=== PATIENT | female | born 1980 | race Caucasian/White ===

== ENCOUNTER 2016-09-22 21:08 | Emergency (ER) | payer BC, SELFPAY ==
[~2016-09-22 21:08] MED LIST: ALDACTONE100 M1 PO; AMOXICILLIN500 MG; AMOXIL500 MG PO; ARMOUR THYROID PO; COMPAZINE10 M PO; CYCLOBENZAPRINE10 M1 PO; FLAGYL500 MG PO; GLIPIZIDE; GLIPIZIDE5 M2 PO; GLUCOPHAGE500 M1 PO; HYDROCODON-ACE1 EA16 PO; IBUPROFEN800 MG PO; METFORMIN; MOTRIN600 MG PO; MUCINEX600 MG PO; NAPROSYN250 M1 PO; NORCO 5-325 TA1 EACH PO; NORCO 5/325 TAB1 TAB; NORCO 5/325 TAB1 TAB PO; NORCO 7.5/325 T1 TAB PO; PERCOCET 5/3251 TAB PO; PERCOCET 7.5/321 TA1 PO; VIBRAMYCIN100 MG PO; VITAMIN D250000 UNI1 PO; XIGDUO XR 5 MG1 EAC1 PO; ZITHROMAX250MG Z-PAK PO
[2016-09-22] MEDS ORDERED: ADIPEX-P37.5 M2 PO (21:30)
[2016-09-22 22:12] LABS: URINE BILIRUBIN NEGATIVE (NEG); URINE BLOOD SMALL (NEG); URINE GLUCOSE (UA) MODERATE (NEG); URINE KETONE NEGATIVE (NEG); URINE LEUKOCYTE ESTERASE POSITIVE (NEG); URINE NITRITE NEGATIVE (NEG); URINE PROTEIN NEGATIVE (NEG); URINE SPECIFIC GRAVITY 1.025 (1.003-1.030)
[2016-09-22 22:13] LABS: URINE APPEARANCE CLOUDY; URINE COLOR YELLOW
[2016-09-22 22:14] LABS: BASO % 0.2 % (0-2); EOS % 1.6 % (0-7); EOSINOPHIL ABSOLUTE COUNT 0.2 tho/cmm (0.0-0.7); HCT-HEMATOCRIT 39.6 % (34.0-49.0); HGB-HEMOGLOBIN 12.7 gm/dl (12.0-15.5); IMMATURE GRANULOCYTES ABSOLUTE 0.02 tho/cmm (0-0.03); IMMATURE GRANULOCYTES PERCENT 0.2 % (0-0.3); LYMPH % 31.9 % (20-45); LYMPH ABSOLUTE COUNT 3.7 tho/cmm (0.8-4.5); MCH (MEAN CORPUSCULAR HGB) 26.6 pg (28.0-32.0); MCHC MEAN CORPUSCULAR HGB CONC 32.1 % (32.0-36.0); MCV (MEAN CELL VOLUME) 82.8 fl (82.0-96.0); MONO % 6.4 % (0-12); MONOCYTE ABSOLUTE COUNT 0.7 tho/cmm (0.0-1.2); NEUTROPHIL ABSOLUTE COUNT 6.9 tho/cmm (1.6-8.0); NEUTROPHIL-AUTOMATED 6.9 tho/cmm (1.6-8.0); NEUTROPHILS % 59.7 % (40-80); PLATELET COUNT 415 tho/cmm (150-450); RED BLOOD COUNT 4.78 mil/cmm (4.00-5.20); RED CELL DISTRIBUTION WIDTH 15.9 % (12.4-16.4); WHITE BLOOD COUNT 11.5 tho/cmm (4.0-10.0)
[2016-09-22 22:27] LABS: ALB/GLOB RATIO 0.6 (0.8-2.0); ALKALINE PHOSPHATASE 60 U/L (33-138); ALT/SGPT 20 U/L (12-78); ANION GAP 12 mmol/L (0-20); AST/SGOT 13 U/L (10-40); BILIRUBIN,TOTAL 0.3 mg/dl (0-1.5); BLOOD UREA NITROGEN 8 mg/dl (6-24); CALCIUM 8.8 mg/dl (8.5-10.5); CARBON DIOXIDE-VENOUS 25 mmol/L (22-32); CHLORIDE 104 mmol/l (96-110); CREATININE 0.54 mg/dl (0.50-1.10); GLUCOSE 143 mg/dL (70-110); LIPASE 139 U/L (73-393); POTASSIUM 3.8 mmol/L (3.7-5.1); SODIUM 137 mmol/L (135-145); eGFR VALUE FOR BLACK >90 mL/Min
[2016-09-22 22:29] LABS: URINE AMORPHOUS 1+; URINE BACTERIA 2+; URINE RBC RARE /[HPF] (0-5)
[2016-09-22 22:30] LABS: PREGNANCY-SERUM NEGATIVE (NEGATIVE)
[2016-09-22] MEDS ORDERED: BENTYL10 M1 PO (23:25)
[2016-09-22] MEDS ORDERED: LOMOTIL 2.5-0.1 EACH PO (23:28)
[2016-11-15] MEDS ORDERED: METFORMIN HCL1000 M2 PO (17:13)
[2016-11-15] MEDS ORDERED: [UNRECOGNIZED DRUG - OTHER] PO (17:13)
[2016-11-15] MEDS ORDERED: PHENTERMINE H37.5 M2 PO (17:15)
[2016-11-15] MEDS ORDERED: GLUCOTROL XL5 M1 PO (17:15)
== END 2016-09-23 00:15 ==
LOC: EDMED 21:08
PROVIDERS: Emergency Medicine
DX: N39.0 Urinary tract infection, site not specified (principal); R19.7 Diarrhea, unspecified; E11.9 Type 2 diabetes mellitus without complications; Z87.442 Personal history of urinary calculi; Z79.899 Other long term (current) drug therapy; Z87.891 Personal history of nicotine dependence
CPT/HCPCS: J0500; J2270; J2405; J7030

== ENCOUNTER 2016-11-17 05:36 | Day surgery (SDC) | payer BC, SELFPAY ==
[~2016-11-17 05:36] MED LIST changes: +ADIPEX-P37.5 M2 PO; +BENTYL10 M1 PO; +GLUCOTROL XL5 M1 PO; +LOMOTIL 2.5-0.1 EACH PO; +METFORMIN HCL1000 M2 PO; +PHENTERMINE H37.5 M2 PO; +[UNRECOGNIZED DRUG - OTHER] PO
== END 2016-11-17 14:15 ==
LOC: SRG 05:36 → SHSB 05:40 → ORW 07:30 → PACU 08:45 → SHSB 10:07
PROC: 0FT44ZZ Resection of Gallbladder, Percutaneous Endoscopic Approach (ICD-10-PCS; principal; 2016-11-17)
DX: K80.10 Calculus of gallbladder with chronic cholecystitis without obstruction (principal); E11.9 Type 2 diabetes mellitus without complications; F41.9 Anxiety disorder, unspecified; F32.9 Major depressive disorder, single episode, unspecified; K21.9 Gastro-esophageal reflux disease without esophagitis; K76.0 Fatty (change of) liver, not elsewhere classified; Z87.891 Personal history of nicotine dependence; Z98.890 Other specified postprocedural states
CPT/HCPCS: J0690; J1170; J2250; J2270; J3010; J7030